=== PATIENT | female | born 1975 | race Caucasian/White ===

== ENCOUNTER 2019-10-22 12:40 | Emergency (ER) | payer OTHER ==
[~2019-10-22] VITALS: Ht 157.5 cm; Wt 122.5 kg
[2019-10-22] MEDS ORDERED: LORazepam 2MG/ML-1ML VIAL ONE (16:22)
[2019-10-22 16:40] VITALS: BP 150/96
== END 2019-10-22 16:44 | disposition home or self-care (01) ==
LOC: ER 12:40
DX: J45.909 Unspecified asthma, uncomplicated (principal)
CPT/HCPCS: 93005